=== PATIENT | male | born 1995 | race Native Hawaiian/Other Pacific Islander ===

== ENCOUNTER 2019-08-07 09:18 | Emergency (ER) | payer OTHER ==
[~2019-08-07] VITALS: Ht 200.7 cm; Wt 137.4 kg
[2019-08-07 09:20] VITALS: TEMP 97.8
[2019-08-07 09:36] LABS: PLATELET COUNT 271 K/uL (142-355)
[2019-08-07 09:55] LABS: POTASSIUM 4.1 mmol/L (3.6-5.2); SODIUM 138 mmol/L (136-145)
[2019-08-07 10:02] LABS: PARTIAL THROMBOPLASTIN TIME 26.2 SECONDS (24.5-33.6)
[2019-08-07 11:29] VITALS: BP 132/74
== END 2019-08-07 11:42 | disposition home or self-care (01) ==
LOC: ED 09:18
PROVIDERS: Student in an Organized Health Care Education/Training Program
DX: R07.89 Other chest pain (principal)
CPT/HCPCS: 36415; 80048; 82550; 83735; 83880; 84484; 85027; 85379; 85610; 85730; 93005; 99283

== ENCOUNTER 2020-10-23 08:04 | Emergency (ER) | payer OTHER ==
[~2020-10-23] VITALS: Ht 200.7 cm; Wt 147.9 kg
[2020-10-23 08:22] VITALS: BP 166/98; TEMP 97.3
== END 2020-10-23 09:24 | disposition home or self-care (01) ==
LOC: ED 08:04
DX: N34.2 Other urethritis (principal)
CPT/HCPCS: 87490; 87590; 96372; 99283; J0696

== ENCOUNTER 2021-09-08 16:46 | Emergency (ER) | payer OTHER ==
[~2021-09-08] VITALS: Ht 200.7 cm; Wt 151.0 kg
[2021-09-08 16:51] VITALS: BP 153/81; TEMP 97.1
== END 2021-09-08 17:41 | disposition home or self-care (01) ==
LOC: ED 16:46
DX: J06.9 Acute upper respiratory infection, unspecified (principal); J02.9 Acute pharyngitis, unspecified; H66.90 Otitis media, unspecified, unspecified ear
CPT/HCPCS: 96372; 99283; J0696; J1885

== ENCOUNTER 2022-08-06 14:06 | Emergency (ER) | payer OTHER ==
[~2022-08-06] VITALS: Ht 200.7 cm; Wt 155.1 kg
[2022-08-06 14:10] VITALS: TEMP 97.7
[2022-08-06 15:05] VITALS: BP 132/86
== END 2022-08-06 15:06 | disposition home or self-care (01) ==
LOC: ED 14:06
DX: A63.8 Other specified predominantly sexually transmitted diseases (principal)
CPT/HCPCS: 81002; 87490; 87590; 99282

== ENCOUNTER 2022-08-11 16:49 | Emergency (ER) | payer OTHER ==
[~2022-08-11] VITALS: Ht 200.7 cm; Wt 155.1 kg
[2022-08-11 16:53] VITALS: TEMP 98.7
[2022-08-11 17:31] VITALS: BP 168/66
== END 2022-08-11 17:30 | disposition home or self-care (01) ==
LOC: ED 16:49
DX: A56.8 Sexually transmitted chlamydial infection of other sites (principal)
CPT/HCPCS: 96372; 99283; J0696

== ENCOUNTER 2022-08-18 21:35 | Emergency (ER) | payer OTHER ==
[~2022-08-18] VITALS: Ht 200.7 cm; Wt 155.1 kg
[2022-08-19] VITALS: BP 141/93; TEMP 98.3
== END 2022-08-19 | disposition home or self-care (01) ==
LOC: ED 21:35
DX: N34.2 Other urethritis (principal)
CPT/HCPCS: 96372; 99282; J0696

== ENCOUNTER 2023-04-13 20:03 | Emergency (ER) | payer OTHER ==
[~2023-04-13] VITALS: Ht 200.7 cm; Wt 149.7 kg
[2023-04-13 20:40] VITALS: BP 161/92; TEMP 97.2
== END 2023-04-13 20:40 | disposition home or self-care (01) ==
LOC: ED 20:03
DX: S30.812A Abrasion of penis, initial encounter (principal); J35.1 Hypertrophy of tonsils; R03.0 Elevated blood-pressure reading, without diagnosis of hypertension; X58.XXXA Exposure to other specified factors, initial encounter
CPT/HCPCS: 99283